=== PATIENT | male | born 1965 | race Caucasian/White ===

== ENCOUNTER 2017-01-17 14:57 | Emergency (ER) | payer SELFPAY ==
[~2017-01-17] VITALS: Ht 177.8 cm; Wt 104.5 kg
[2017-01-17 15:00] VITALS: Ht 177.8 cm; Wt 104.5 kg
[2017-01-17] MEDS ORDERED: ASPIRIN 325 MG TAB PO STA (16:39)
--- NOTE | 2017-01-17 16:52 | ERD ---
ER Documentation Chief Complaint Chief Complaint sent by pmd for ct r/o PE, sob today HPI 51-year-old male with a history of type 2 diabetes and rotator cuff repair surgery 3 days ago, presents emergency department for complaints of feeling short of breath. Patient states his symptoms began today and have occurred every 15 minutes while at rest. He denies chest pain, increased shoulder pain, swelling of his extremities, or redness. He does report a mild cough but denies fever, chills, congestion or other respiratory symptoms. Patient states he is currently on 81 mg of aspirin as prescribed by his surgeon. He also reports taking Keflex daily and is scheduled to have his dressing removed today. He denies a history of smoking, Cancer, DVT, PE, or other known cardiovascular disease. He was seen by his primary care provider today who referred him to the emergency department to rule out PE. Patient has a follow- up scheduled with his surgeon on 25 January. ROS All systems reviewed and are negative except as per history of present illness. Medications Home Meds Active Scripts Tramadol HCl (Tramadol HCl) 50 Mg Tablet, 50 MG PO Q4 Y for PAIN, #20 TAB Prov:TIMOTHY NEGRON PA-C 01/17/17 Naproxen* (Naprosyn*) 500 Mg Tablet, 500 MG PO BID Y for PAIN AND/OR INFLAMMATION, #30 TAB Prov:TIMOTHY NEGRON PA-C 01/17/17 Physical Exam Vitals Vital Signs Date Time Temp Pulse Resp B/P Pulse Ox O2 Delivery O2 Flow Rate FiO2 01/17/17 15:00 97.8 62 18 145/86 97 Physical Exam Const: Well-developed, well-nourished, in no acute distress Head: Atraumatic Eyes: Normal Conjunctiva ENT: Normal External Ears, Nose and Mouth. Neck: Full range of motion..~ No meningismus. Resp: Clear to auscultation bilaterally Cardio: Regular rate and rhythm, no murmurs Abd: Soft, non tender, non distended. Normal bowel sounds Skin: No petechiae or rashes Back: No midline or flank tenderness Ext: Right upper extremity placed in a shoulder immobilizer. No tenderness to palpation. No increased swelling or redness near the surgical site. Steri- Strips in place. No active drainage. Otherwise No cyanosis, Erythema or edema Of other extremities. Neur: Awake and alert Psych: Normal Mood and Affect Result Diagram: 01/17/17 1655 01/17/17 1655 Results 24 hrs Laboratory Tests Test 01/17/17 16:55 White Blood Count 6.410^3/ul Red Blood Count 4.8710^6/ul Hemoglobin 14.9g/dl Hematocrit 42.3% Mean Corpuscular Volume 86.9fl Mean Corpuscular Hemoglobin 30.6pg Mean Corpuscular Hemoglobin Concent 35.2g/dl Red Cell Distribution Width 12.9% Platelet Count 62497^3/UL Mean Platelet Volume 10.4fl Neutrophils % 60.6% Lymphocytes % 30.1% Monocytes % 5.7% Eosinophils % 2.8% Basophils % 0.6% Nucleated Red Blood Cells % 0.0/100WBC Neutrophils # 3.910^3/ul Lymphocytes # 1.910^3/ul Monocytes # 0.410^3/ul Eosinophils # 0.210^3/ul Basophils # 0.010^3/ul Nucleated Red Blood Cells # 0.010^3/ul Prothrombin Time 13.3Sec Prothrombin Time Ratio 1.0 INR International Normalized Ratio 1.01 Activated Partial Thromboplast Time 29.0Sec D-Dimer 393.19ng/ml D-Dimer Comment Sodium Level 143mmol/L Potassium Level 3.9mmol/L Chloride Level 105mmol/L Carbon Dioxide Level 26mmol/L Anion Gap 16 Blood Urea Nitrogen 15mg/dl Creatinine 0.77mg/dl Glucose Level 118mg/dl Calcium Level 9.3mg/dl Total Bilirubin 0.3mg/dl Direct Bilirubin 0.00mg/dl Indirect Bilirubin 0.3mg/dl Aspartate Amino Transf (AST/SGOT) 44IU/L Alanine Aminotransferase (ALT/SGPT) 79IU/L Alkaline Phosphatase 66IU/L Troponin I < 0.012ng/ml Total Protein 7.6g/dl Albumin 4.8g/dl Globulin 2.80g/dl Albumin/Globulin Ratio 1.71 Current Medications Medications (Trade) Dose Ordered Sig/Piter Route PRN Reason Start Time Stop Time Status Last Admin Dose Admin Aspirin (Aspirin) 325 mg ONCE STAT PO 01/17/17 16:39 01/17/17 16:43 DC 01/17/17 17:01 Ibuprofen (Motrin) 600 mg ONCE ONCE PO 01/17/17 17:30 01/17/17 17:31 DC 01/17/17 17:41 IV Flush 10 ml 10 ml STK-MED ONCE .ROUTE 01/17/17 18:20 01/17/17 18:21 DC 01/17/17 18:56 Sodium Chloride 100 ml @ ud STK-MED ONCE .ROUTE 01/17/17 18:20 01/17/17 18:21 DC 01/17/17 18:57 Iohexol (Omnipaque) 100 ml @ ud STK-MED ONCE .ROUTE 01/17/17 18:20 01/17/17 18:21 DC 01/17/17 18:57 Iohexol (Omnipaque 350mg/ ml) 50 ml STK-MED ONCE .ROUTE 01/17/17 18:20 01/17/17 18:21 DC 01/17/17 18:58 Procedures/MDM PROCEDURE: CTA Chest with contrast and with 3-D reconstructions CLINICAL INDICATION: Shortness of breath, 3 days postop shoulder surgery TECHNIQUE: The study was performed utilizing multidetector CT scanner. Direct spiral axial sections were obtained from the thoracic inlet to the upper abdomen with the use of intravenous contrast material (125 cc of Omnipaque 350) . Sagittal, coronal and 3-D reformations were obtained. The images were reviewed on a PACS workstation. DLP 862.03 mGycm CTDIvol 67.60, 20.10 mGy One or more of the following dose reduction techniques were used: - Automated exposure control. - Adjustment of the mA and/or kV according to patient size. - Use of iterative reconstruction technique. COMPARISON: No prior studies are available for comparison. FINDINGS: There are no pulmonary emboli. The lungs are clear. There is no pleural fluid. There is no pneumothorax. There is mild cardiomegaly. There is no pericardial fluid. The aorta is within normal limits. There are no enlarged axillary or mediastinal lymph nodes. The visualized portions of the upper abdomen are unremarkable. Osseous and soft tissue structures are within normal limits. IMPRESSION: No CT evidence for pulmonary embolus. Mild cardiomegaly. Clear lungs. PROCEDURE: XR Chest. CLINICAL INDICATION: Chest Pain. TECHNIQUE: Single frontal view of the chest was obtained. COMPARISON: None available FINDINGS: The cardiomediastinal silhouette is normal size. Pulmonary vasculature is within normal limits. The lungs are clear. No signs of pleural fluid or pneumothorax are seen. There is a widening of the right acromioclavicular joint. IMPRESSION: No evidence for active cardiopulmonary disease. Widened right acromioclavicular joint, which may be postoperative or may reflect AC joint separation. This is a 51-year-old male with a history of type 2 diabetes and recent rotator cuff repair who presents the emergency department for complaints of sudden onset shortness of breath while at rest which began today. Patient was seen by his primary care provider who referred him to the emergency department to rule out a PE. Patient denied chest pain, fever, chills. Vital signs upon arrival reviewed. Patient afebrile, not tachycardic, normotensive and not hypoxic. Physical exam was unremarkable. CBC showed no evidence of systemic infection or severe anemia. CMP showed no evidence of electrolyte abnormalities, severe acidosis, alkalosis , renal failure, or liver disease. D-dimer elevated above 300 Troponin negative Patient received 325 mg aspirin while in the emergency department. EKG: Interpreted by supervising physician Dr. Ayad Alford Rate/Rhythm: Sinus bradycardia at 55 bpm QRS, ST, T-waves: No changes consistent w/ acute ischemia. Evidence of possible prior inferior infarct Impression: No evidence of ischemia or arrhythmia Chest X-ray 1V Interpreted by radiologist: Soft Tissue: No acute abnormalities Bones: Widened right acromioclavicular joint, likely due to procedure. Otherwise No acute abnormalities Mediastinum/Cardiac Silhouette/Lungs: No acute abnormalities Patient's case discussed with supervising physician, Thomas Alford, who recommended CT angiogram to rule out PE. CT negative for acute PE or other process. At this time given the patient's presentation, physical exam and laboratory workup, have low suspicion for acute coronary syndrome, pneumothorax, pneumonia, PE, DVT, or cellulitis. Patient shortness of breath likely attributed to his recent rotator cuff surgery. Strict return precautions were discussed with the patient. Otherwise follow-up with surgeon as previously scheduled. Patient and expressed understanding of and agreement with plan. Based on patient's history of present illness and physical examination the decision was made to discharge. The patient was re-evaluated after ED treatment and stabilizing measures, and symptoms have improved. There is no evidence of life threatening injuries or illnesses at this time. On re-examination, patient resting in no distress, stable vital signs, reports feeling better and safe for discharge with outpatient follow up with PMD in 1-2 days. Patient given return precautions. Departure Diagnosis: Primary Impression: Shortness of breath TIMOTHY NEGRON PA-C Jan 17, 2017 16:52
[2017-01-17 17:15] LABS: BASOPHILS % 0.6 % (0.0-2.0); EOSINOPHILS # 0.2 10^3/ul (0.0-0.5); EOSINOPHILS % 2.8 % (0.0-7.0); HEMATOCRIT 42.3 % (42.0-52.0); HEMOGLOBIN 14.9 g/dl (14.0-18.0); LYMPHOCYTES # 1.9 10^3/ul (0.8-2.9); LYMPHOCYTES % 30.1 % (15.0-51.0); MEAN CORPUSCULAR HEMOGLOBIN 30.6 pg (29.0-33.0); MEAN CORPUSCULAR HGB CONC 35.2 g/dl (32.0-37.0); MEAN CORPUSCULAR VOLUME 86.9 fl (82.0-101.0); MEAN PLATELET VOLUME 10.4 fl (7.4-10.4); MONOCYTE # 0.4 10^3/ul (0.3-0.9); MONOCYTES % 5.7 % (0.0-11.0); NEUTROPHIL # 3.9 10^3/ul (1.6-7.5); NEUTROPHILS % 60.6 % (39.0-77.0); PLATELET COUNT 210 10^3/UL (140-415); RED BLOOD COUNT 4.87 10^6/ul (4.70-6.10); RED CELL DISTRIBUTION WIDTH 12.9 % (11.5-14.5); WHITE BLOOD COUNT 6.4 10^3/ul (4.8-10.8)
[2017-01-17] MEDS ORDERED: IBUPROFEN 600 MG TAB PO ONE (17:30)
[2017-01-17 17:33] LABS: INR 1.01; PROTIME 13.3 Sec (12.2-14.2)
[2017-01-17 17:37] LABS: ALANINE AMINOTRANSFERASE 79 IU/L (13-69); ALBUMIN 4.8 g/dl (3.3-4.9); ALBUMIN/GLOBULIN RATIO 1.71; ALKALINE PHOSPHATASE 66 IU/L (42-121); ANION GAP 16 (8-16); ASPARTATE AMINO TRANSFERASE 44 IU/L (15-46); BILIRUBIN,INDIRECT 0.3 mg/dl (0-1.1); BILIRUBIN,TOTAL 0.3 mg/dl (0.2-1.3); BLOOD UREA NITROGEN 15 mg/dl (7-20); CALCIUM 9.3 mg/dl (8.4-10.2); CARBON DIOXIDE 26 mmol/L (21-31); CHLORIDE 105 mmol/L (97-110); CREATININE 0.77 mg/dl (0.61-1.24); GLUCOSE 118 mg/dl (70-220); POTASSIUM 3.9 mmol/L (3.5-5.1); SODIUM 143 mmol/L (135-144); TOTAL PROTEIN 7.6 g/dl (6.1-8.1)
[2017-01-17 17:41] LABS: D-DIMER 393.19 ng/ml (<460)
[2017-01-17 17:50] LABS: TROPONIN-I < 0.012 ng/ml (0.00-0.12)
--- NOTE | 2017-01-17 17:52 | RADRPT ---
PROCEDURE: XR Chest. CLINICAL INDICATION: Chest Pain. TECHNIQUE: Single frontal view of the chest was obtained. COMPARISON: None available FINDINGS: The cardiomediastinal silhouette is normal size. Pulmonary vasculature is within normal limits. Th e lungs are clear. No signs of pleural fluid or pneumothorax are seen. There is a widening of the right acromioclavicul ar joint. IMPRESSION: No evidence for active cardiopulmonary disease. Widened right acromioclavicular joint, which may be postoperative or may reflect AC joint separation. RPTAT: HBST .Kodi Ferguson MD, Date Time Electronically viewed and signed by .Kodi Ferguson MD, on 01/17/2017 17:52 .T/
[2017-01-17] MEDS ORDERED: SOD CHLORIDE 0.9% 100 ML ONE (18:20)
[2017-01-17] MEDS ORDERED: IOHEXOL 100 ML ONE (18:20)
[2017-01-17] MEDS ORDERED: IOHEXOL 350MG/ML 50 ML BTL ONE (18:20)
--- NOTE | 2017-01-17 19:03 | RADRPT ---
PROCEDURE: CTA Chest with contrast and with 3-D reconstructions CLINICAL INDICATION: Shortness of breath, 3 days postop shoulder surgery TECHNIQUE: The study was performed utilizing multidetector CT scanner. Direct spiral axial section s were obtained from the thoracic inlet to the upper abdomen with the use of intravenous contrast ma terial (125 cc of Omnipaque 350). Sagittal, coronal and 3-D reformations were obtained. The images w ere reviewed on a PACS workstation. DLP 862.03 mGycm CTDIvol 67.60, 20.10 mGy One or more of the following dose reduction techniques were used: - Automated exposure control. - Adjustment of the mA and/or kV according to patient size. - Use of iterative reconstruction technique. COMPARISON: No prior studies are available for comparison. FINDINGS: There are no pulmonary emboli. The lungs are clear. There is no pleural fluid. There is no pneumothorax. There is mild cardiomegaly. There is no pericardial fluid. The aorta is within normal limits. Ther e are no enlarged axillary or mediastinal lymph nodes. The visualized portions of the upper abdomen are unremarkable. Osseous and soft tissue structures are within normal limits. IMPRESSION: No CT evidence for pulmonary embolus. Mild cardiomegaly. Clear lungs. RPTAT: EE Physician Douglas Date Time Electronically viewed and signed by Physician Douglas on 01/17/2017 19:02 [email or web address]
[2017-01-17] MEDS ORDERED: NAPR-260 PO (19:09)
[2017-01-17] MEDS ORDERED: TRAM50TA2 PO (19:09)
== END 2017-01-17 19:17 | disposition home or self-care (01) ==
LOC: FTE 14:57
DX: R06.02 Shortness of breath (principal); E11.9 Type 2 diabetes mellitus without complications
CPT/HCPCS: 36415; 71010; 71275; 80053; 84484; 85025; 85378; 85610; 85730; 93005; 99285; Q9967